=== PATIENT | female | born 1945 | race Caucasian/White ===

== ENCOUNTER 2017-03-15 15:26 | Emergency (ER) | payer MEDICARE ==
[~2017-03-15] VITALS: Ht 157.5 cm; Wt 72.6 kg
--- NOTE | 2017-03-15 15:26 | NUR ---
CALLED FOR TRIAGE, NO RESPONSE, PT PHYSICALLY NOT IN WAITING ROOM.
--- NOTE | 2017-03-15 15:57 | NUR ---
RIGHT SHOULDER PAIN S/P FALL YESTERDAY. AWAITING MD ORDER
[2017-03-15] MEDS ORDERED: IBUPROFEN 600 MG TABLET PO STA (16:10)
[2017-03-15] MEDS ORDERED: IBUPROFEN 600 MG TABLET PO ONE (16:11)
--- NOTE | 2017-03-15 16:20 | NUR ---
STRAND BUNCHER FINE WIRE AT BEDSIDE
[2017-03-15 17:49] VITALS: BP 133/98
--- NOTE | 2017-03-15 17:49 | NUR ---
Patient discharged to home in stable condition. Written and verbal after care instructions given. Patient verbalizes understanding of instruction.
== END 2017-03-15 17:52 | disposition home or self-care (01) ==
LOC: ER 15:27
DX: S42.211A Unspecified displaced fracture of surgical neck of right humerus, initial encounter for closed fracture (principal); Z98.890 Other specified postprocedural states; W01.0XXA Fall on same level from slipping, tripping and stumbling without subsequent striking against object, initial encounter; Y93.89 Activity, other specified; Y92.89 Other specified places as the place of occurrence of the external cause; Y99.9 Unspecified external cause status
CPT/HCPCS: 73020; 73030-TC; A4606; Z7610

== ENCOUNTER 2019-03-04 17:18 | Emergency (ER) | payer MEDICARE, BC ==
[~2019-03-04] VITALS: Ht 152.4 cm; Wt 63.0 kg
--- NOTE | 2019-03-04 17:25 | NUR ---
SEEN AND EXAMINED BY DR. CURRAN.
--- NOTE | 2019-03-04 17:27 | NUR ---
PT BIB C/O R lower extremity pain and swelling s/p fall last night, PT IS AAOX3, NOT IN RESPIRATORY DISTRESS, KEPT RESTED AN COMFORTABLE, WILL CONTINUE TO MONITOR.
--- NOTE | 2019-03-04 17:32 | NUR ---
TERMITE EXTERMINATOR AT BEDSIDE FOR XRAY.
--- NOTE | 2019-03-04 17:50 | NUR ---
TECH AT BEDSIDE FOR US.
[2019-03-04] MEDS ORDERED: oxyCODONE/APAP (5/325 MG) 1 UDTAB TABLET ONE (19:12)
--- NOTE | 2019-03-04 19:14 | NUR ---
OFFERED AMBULANCE FOR TRANSFER BACK HOME.
--- NOTE | 2019-03-04 19:24 | NUR ---
PT REFUSED AMBULANCE TRANSPORT.
--- NOTE | 2019-03-04 19:25 | NUR ---
Patient discharged to home in stable condition. Written and verbal after care instructions given. Patient verbalizes understanding of instruction.
[2019-03-04 19:26] VITALS: BP 134/88
[2019-03-04] MEDS ORDERED: oxyCODONE/APAP (5/325 MG) 1 UDTAB TABLET PO ONE (19:30)
== END 2019-03-04 19:27 | disposition home or self-care (01) ==
LOC: ER 17:18
DX: S82.191A Other fracture of upper end of right tibia, initial encounter for closed fracture (principal); S82.491A Other fracture of shaft of right fibula, initial encounter for closed fracture; Z98.890 Other specified postprocedural states; W01.198A Fall on same level from slipping, tripping and stumbling with subsequent striking against other object, initial encounter; Y93.89 Activity, other specified; Y92.89 Other specified places as the place of occurrence of the external cause; Y99.8 Other external cause status
CPT/HCPCS: 73564-TC; 73590-TC; 93971-TC